=== PATIENT | male | born 1950 | race Caucasian/White ===

== ENCOUNTER 2018-08-04 09:15 | Observation (INO) ==
[2018-08-04] MEDS ORDERED: methylPREDNISolone 125 MG/2 ML VIAL IV STA (09:47)
[2018-08-04] MEDS ORDERED: ALBUT/IPRATROP 3MG/0.5MG NEB 3 ML VIAL INH STA (09:47)
[2018-08-04] MEDS ORDERED: SODIUM CHLORIDE 0.9% 1000ML 1,000 ML IV STA (09:48)
[2018-08-04 10:00] LABS: Basophils # (auto) 0.02 K/uL (0-0.2); Basophils % (auto) 0.2 %; Eosinophils # (auto) 0.23 K/uL (0-0.5); Eosinophils % (auto) 2.6 %; Hematocrit (blood only) 39.1 % (42-52); Hemoglobin 13.1 g/dL (14.0-18.0); Immature Granulocytes # (auto) 0.11 K/uL (0.00-0.02); Immature Granulocytes % (auto) 1.2 %; Lymphocytes # (auto) 0.73 K/uL (1.2-3.4); Lymphocytes % (auto) 8.1 %; Mean Corpuscular Hgb Conc 33.5 g/dL (32-36); Mean Corpuscular Volume 93.1 fL (80-100); Mean Platelet Volume 9.6 fL (7.4-10.4); Monocytes # (auto) 0.83 K/uL (0.11-0.59); Monocytes % (auto) 9.2 %; Neutrophils # (auto) 7.08 K/uL (1.4-6.5); Neutrophils % (auto) 78.7 %; Platelet Count 195 K/uL (130-400); RDW Coefficient of Variation 13.4 % (11.5-14.5)
--- NOTE | 2018-08-04 10:05 | XRay Report ---
XR chest 1V portable HISTORY: 67 years-old Male Dyspnea acute shortness of breath COMPARISON: None available TECHNIQUE: Portable AP view of the chest FINDINGS: Cardiomediastinal and hilar silhouettes are within normal limits. Calcification of the thoracic aorti c arch. There is no pneumothorax, large pleural effusion or overt pulmonary edema. Mild blunting of t he costophrenic angles with bibasilar interstitial opacities. Linear subsegmental consolidative opaci ties of the left lung base. Increased lucency of the lungs may reflect underlying emphysema. Degenera tive changes of the shoulders and spine. IMPRESSION: 1. Bibasilar opacities are suggestive of probable atelectasis. 2. Suggested emphysema. The above report was generated using voice recognition software. It may contain grammatical, syntax o r spelling errors. Electronically signed by: Ken Cuello M.D. 08/04/2018 10:04 AM
[2018-08-04 10:12] LABS: INR 1.2 (0.9-1.1); Partial Thromboplastin Ratio 0.9; Partial Thromboplastin Time 24.5 Seconds (21.0-31.0); Prothrombin Time 11.8 Seconds (9.0-12.0)
[2018-08-04 10:16] LABS: Alanine Aminotransferase 51 U/L (12-78); Aspartate Aminotransferase 13 U/L (15-37); BUN Creatinine Ratio 15.7 (10-20); Blood Urea Nitrogen 41 mg/dl (7-18); Calcium 9.5 mg/dl (8.5-10.1); Carbon Dioxide 25 mmol/L (21-32); Chloride 107 mmol/L (98-107); Creatinine Clr Calc Pharmacy 29.3 ml/min; Est GFR (African American) 27.6; Est GFR (Non-African American) 23.8; Glucose 103 mg/dl (70-99); Potassium 4.1 mmol/L (3.5-5.1); Sodium 139 mmol/L (136-145)
[2018-08-04 10:21] LABS: Albumin Globulin Ratio 0.7 (0.9-2); Alkaline Phosphatase 83 U/L (45-117); Bilirubin,Total 0.7 mg/dl (0.2-1); Globulin 4.3 gm/dl (2.5-4.0); Total Protein 7.3 gm/dl (6.4-8.2); Troponin I < 0.015 ng/ml (0-0.045)
[2018-08-04] MEDS ORDERED: DOXYCYCLINE HYCLATE 100 MG in DEXTROSE 5% 100 ML IV STA (11:47)
[2018-08-04] MEDS ORDERED: cefTRIAXone SODIUM 1,000 MG/50 ML BAG IV STA (11:47)
--- NOTE | 2018-08-04 13:28 | History & Physical Report ---
Date of Service August 04, 2018 Assessment & Plan (1) COPD exacerbation: Ongoing symptoms for past month - has failed outpatient management with oral prednisone, amoxicillin and nebulizer treatments. Today with hypoxia at the [facility] and unstable oxygen sats in the ED so referred for admission. - IV Solumedrol 40 mg Q8 hours (failed oral prednisone) - Broad antibiotic coverage due to bibasilar infiltrates on CXR - using Rocephin/doxycycline - DuoNebs QID ATC with additional up to Q2 hours prn - O2 via nasal canula titrated to maintain sat >90% - Continue home maintenance regimen of Symbicort and Spiriva - In view of persistent symptoms and recent weight loss, pt will need close outpatient f/u to ensure resolution and potential f/u imaging. Currently followed by [facility] but review of [facility] records reveals that patient is also attempting to obtain a [facility] PCP for management of more acute symptoms. (2) Hypoxia: See above (3) Anxiety: Continue home meds - bupropion and buspirone (4) Dyslipidemia: - Continue simvastatin 40 mg daily (5) MATTHEW on CPAP: - Order written for patient to use own CPAP machine at night (6) GERD without esophagitis: - Pt on PPI at home - will use Pepcid while admitted (7) CKD (chronic kidney disease) stage 3, GFR 30-59 ml/min: Creatinine today elevated at 2.64 - pt unsure of baseline but creatinine was ~2.3 when at [facility] earlier this month - IVF with NSS at 100 ml/hr - repeat labs in AM. Pt does report decreased oral intake with dark urine over past few days so may have a mild RAH related to dehydration - HOLD NSAIDs (uses ibuprofen and naproxen at home) (8) Essential hypertension: Was hypotensive in ED but BP improving with IVF - continue to monitor - Home meds restarted with holds for SBP <100 Patient seen and evaluated with collaborating physician, Dr. Jean. Plan of care discussed and as outlined above. Patient to be followed starting tomorrow by Dr. Morrissey. Kitty Monahan PA-C History of Present Illness Chief Complaint: shortness of breath Primary Care Provider: Kena Griffin PA-C This is 67 y/o male with a history COPD, CAD, HTN, CKD, PVD, GERD, Cervical DDD, MATTHEW on CPAP (HS), and dyslipidemia who presented to the ED today from the [facility] with shortness of breath, hypoxia and hypotension. Pt reports ongoing issues with breathing since the end of June for which he has been seen multiple times including in the ED at [facility] on 07/19 then at [facility] in [place] on 07/24. Pt reports in the ED he was started on five days of prednisone with mild improvement. When seen at , prednisone course extended and pt started on amoxicillin x 10 days. He was also given a nebulizer and has been using albuterol nebs 4x/day with some relief. Today he apparently presented to the [facility] for follow-up and was found to be hypoxic with pulseox in the mid 80s so he was referred to the ED. In the ED, he was given solumedrol and a DuoNeb but sats remained unstable so pt referred for admission. Currently pt reports some mild shortness of breath described as "I have to think about breathing all of the time" as well as trouble "getting enough air." He has had wheezing intermittently since symptoms began a month ago. Coughing typically comes in episodes that may last up to an hour - it is intermittently productive, initially of yellow-green sputum but since being on amoxicillin sputum is now white to clear. He denies hemoptysis. Breathing is worse with exertion - using a chair lift to go up and down the stairs at home. Unable to walk out to get the mail without significant dyspnea when he was able to do this before current episode of symptoms started. He does not have a thermometer so unsure if any fevers but has noted shaking chills and sweats at times. He reports an unintentional wt loss of 15 lbs over past month with associated nausea, loss of appetite. Allergies Allergy/AdvReac Type Severity Reaction Status Date / Time No Known Allergies Allergy Unverified 08/04/18 10:20 Home Medications Home Medications Medication Instructions Recorded Confirmed Type albuterol sulfate 2 inh INHALATION Q6H PRN 08/04/18 08/04/18 History amoxicillin 500 mg PO BID 08/04/18 08/04/18 History budesonide-formoterol 2 puff INHALATION BID 08/04/18 08/04/18 History bupropion HCl 300 mg PO QAM 08/04/18 08/04/18 History buspirone 10 mg PO HS 08/04/18 08/04/18 History cholecalciferol (vitamin D3) 1,000 unit PO DAILY 08/04/18 08/04/18 History [Vitamin D3] coal tar 1 applic TOPICAL DAILY 08/04/18 08/04/18 History ibuprofen 600 mg PO QID PRN 08/04/18 08/04/18 History lisinopril 10 mg PO HS 08/04/18 08/04/18 History lisinopril-hydrochlorothiazide 1 tab PO QAM 08/04/18 08/04/18 History mirtazapine 15 mg PO HS 08/04/18 08/04/18 History naproxen 250 mg PO BID PRN 08/04/18 08/04/18 History omeprazole 20 mg PO DAILY 08/04/18 08/04/18 History prazosin 2 mg PO HS 08/04/18 08/04/18 History simvastatin 40 mg PO HS 08/04/18 08/04/18 History tiotropium bromide 1 cap INHALATION DAILY 08/04/18 08/04/18 History Past Med/Surg History Social History Preferred Language: [place] Communication Ability: Effective Safety Administrator Required: No Beliefs That Will Affect Care: None Current Living Situation: Significant Other Current Living Situation Comment: "girlfriend" of 27 year - he helps her with care Other Information That Helps Us Care for You: No Feels Safe at Home: Yes Safety Concerns: Feels Safe At This Time Smoking Status: Former smoker Tobacco Type: cigarettes Do You Dip or Chew Tobacco: No Smoking End Date: 2004 Second Hand Exposure: No Tobacco Cessation Education Requested by Patient: No Hx Alcohol Use: Yes Alcohol type: beer Hx Substance Use: No Review of Systems Review of Systems: All systems reviewed & are unremarkable except as noted in HPI & below Constitutional: + chills, + sweats, + fatigue, + weakness, + anorexia and + weight loss (15 lbs unintentional over past month); no fever Eyes: no diplopia, no photophobia and not seeing flashes Ear, Nose, Mouth, Throat: no sore throat and no dysphagia Respiratory: + cough (intermittently productive), + change in sputum, + dyspnea, + dyspnea on exertion and + wheezing; no hemoptysis Cardiovascular: no chest pain, no orthopnea, no palpitations, no syncope and no edema Gastrointestinal: + bloating and + nausea; no vomiting, no change in stools, no constipation, no diarrhea/loose stools and no blood in stools Genitourinary: + problem reported (dark urine the past 2-3 days ); no dysuria, no urinary frequency and no hematuria Musculoskeletal: + neck pain (chronic); no back pain, no joint pain and no myalgia Integumentary: no rash and no skin ulcer Neurologic: + dizziness (with standing with associated blurry vision); no tingling, no numbness, no paresthesia and no syncope Psychiatric: no depression Physical Exam Constitutional: WD/WN, vitals as above no acute distress Eyes: PERRL, conjunctivae normal, anicteric sclerae EOM intact bilaterally ENMT: external ear and nose normal, oropharynx normal Neck: trachea midline Respiratory: no respiratory distress and does not use accessory muscles Auscultation: + diminished lung sounds (throughout) and + crackles (right > left base); no rhonchi and no wheezes Cardiovascular: Rate/Rhythm: regular rate and regular rhythm Heart Sounds: no gallop and no murmur Vessels: no carotid bruit Gastrointestinal (Abdomen): Inspection/Auscultation: + abdomen distended (softly) and normal bowel sounds Percussion/Palpation: abdomen nontender and no guarding Musculoskeletal: no cyanosis or clubbing, extremities motor strength 5/5 Head/Neck/Chest: normocephalic, head atraumatic and neck supple Extremities: no cyanosis Skin: no rashes, warm and dry Neurologic: moves all extremities; no focal motor deficits Speech / Cognition: normal speech Motor/Sensory: no tremor Psychiatric: A+Ox3, euthymic affect Results & Data Vital Signs (Past 12 Hours) Vital Signs Temp Pulse Resp BP Pulse Ox 08/04/18 12:30 88 13 111/70 94 08/04/18 12:00 85 13 108/64 95 08/04/18 11:36 90 15 93/57 L 92 08/04/18 11:30 89 17 93/57 L 94 08/04/18 11:00 92 H 12 98/68 L 92 08/04/18 10:30 90 13 111/71 93 08/04/18 10:01 98 H 11 L 93/57 L 92 04/23/19 10:00 97 H 22 93 08/04/18 09:58 99 H 93 08/04/18 09:40 94 H 20 08/04/18 09:30 101 H 13 108/64 08/04/18 09:27 36.7 C 104 H 20 83/59 L 96 Laboratory Results Laboratory Results - last 24 hr 08/04/18 08/04/18 08/04/18 09:37 09:37 09:37 WBC 9.00 RBC 4.20 L Hgb 13.1 L Hct 39.1 L MCV 93.1 MCH 31.2 MCHC 33.5 RDW Std Deviation 46.0 RDW Coeff of Demetrius 13.4 Plt Count 195 MPV 9.6 Immature Gran % (Auto) 1.2 Neut % (Auto) 78.7 Lymph % (Auto) 8.1 Tillman % (Auto) 9.2 Eos % (Auto) 2.6 Baso % (Auto) 0.2 Immature Gran # (Auto) 0.11 H Neut # (Auto) 7.08 H Lymph # (Auto) 0.73 L Tillman # (Auto) 0.83 H Eos # (Auto) 0.23 Baso # (Auto) 0.02 PT 11.8 INR 1.2 H APTT 24.5 PTT Ratio 0.9 Sodium 139 Potassium 4.1 Chloride 107 Carbon Dioxide 25 Anion Gap 7.0 BUN 41 H Creatinine 2.64 H Est Cr Clr Drug Dosing 29.3 Est GFR ( Amer) 27.6 Est GFR (Non-Af Amer) 23.8 BUN/Creatinine Ratio 15.7 Glucose 103 H Calcium 9.5 Total Bilirubin 0.7 AST 13 L ALT 51 Alkaline Phosphatase 83 Troponin I < 0.015 Total Protein 7.3 Albumin 3.0 L Globulin 4.3 H Albumin/Globulin Ratio 0.7 L Hepatitis C Ab Screen 08/04/18 09:37 WBC RBC Hgb Hct MCV MCH MCHC RDW Std Deviation RDW Coeff of Demetrius Plt Count MPV Immature Gran % (Auto) Neut % (Auto) Lymph % (Auto) Tillman % (Auto) Eos % (Auto) Baso % (Auto) Immature Gran # (Auto) Neut # (Auto) Lymph # (Auto) Tillman # (Auto) Eos # (Auto) Baso # (Auto) PT INR APTT PTT Ratio Sodium Potassium Chloride Carbon Dioxide Anion Gap BUN Creatinine Est Cr Clr Drug Dosing Est GFR ( Amer) Est GFR (Non-Af Amer) BUN/Creatinine Ratio Glucose Calcium Total Bilirubin AST ALT Alkaline Phosphatase Troponin I Total Protein Albumin Globulin Albumin/Globulin Ratio Hepatitis C Ab Screen Neg Diagnostic Findings Chest X-ray 08/04/18 - IMPRESSION: 1. Bibasilar opacities are suggestive of probable atelectasis. 2. Suggested emphysema. Medications Administered Sodium Chloride (Nss 1000ml) 1,000 mls @ 100 mls/hr IV .Q10H ARIANNA Stop: 09/03/18 13:38 Last Admin: 08/04/18 14:53 Dose: 100 mls/hr Documented by: [id number] Discontinued Medications Albuterol (Duoneb) 3 ml INH NOW STA Stop: 08/04/18 09:48 Last Admin: 08/04/18 10:03 Dose: 3 ml Documented by: [id number] Sodium Chloride (Nss 1000ml) 1,000 mls @ 125 mls/hr IV .Q8H STA Stop: 08/04/18 17:47 Last Infusion: 08/04/18 14:53 Dose: 0 mls/hr Documented by: [id number] Infusion: 08/04/18 12:32 Dose: 0 mls/hr Documented by: [id number] Admin: 08/04/18 10:03 Dose: 125 mls/hr Documented by: [id number] Doxycycline Hyclate 100 mg/ (Dextrose) 110 mls @ 50 mls/hr IV NOW STA Stop: 08/04/18 13:58 Last Infusion: 08/04/18 14:53 Dose: 0 mls/hr Documented by: [id number] Admin: 08/04/18 12:32 Dose: 50 mls/hr Documented by: [id number] Ceftriaxone Sodium (Rocephin) 1,000 mg in 50 mls @ 100 mls/hr IV NOW STA Stop: 08/04/18 12:16 Last Infusion: 08/04/18 12:27 Dose: 0 mls/hr Documented by: [id number] Admin: 08/04/18 11:57 Dose: 100 mls/hr Documented by: [id number] Methylprednisolone (Solumedrol) 125 mg IV NOW STA Stop: 08/04/18 09:48 Last Admin: 08/04/18 10:03 Dose: 125 mg Documented by: [id number] Supervising Physician Co-Signing Physician Notes Attending addendum: The patient was seen and examined in telemetry unit She has been feeling little better since admission He complains to have moderate shortness of breath but no chest pain and/or palpitation On examination Minimal distress at rest due to shortness of breath Hemodynamically stable Chest-decreased breath sounds all over secondary to poor air entry Heart-S1-S2, regular Abdomen-soft, benign nontender,, bowel sounds present Extremities-no edema [employer] INST[employer]= alert, awake and oriented x3. Generally weak Admission labs and imaging studies reviewed Has COPD exacerbation with severe emphysema complicated by obstructive sleep apnea Agree with assessment and plan as outlined above by Karol Jean
[2018-08-04] MEDS ORDERED: NITROGLYCERIN SL 0.4 MG/TAB TAB SL PRN (13:39)
[2018-08-04] MEDS: SODIUM CHLORIDE 0.9% 1000ML 1,000 ML IV SCH (14:53)
[2018-08-04] MEDS: ALBUT/IPRATROP 3MG/0.5MG NEB 3 ML VIAL NEB SCH ×2 (15:38→19:16)
[2018-08-04] MEDS: methylPREDNISolone 40 MG in SYRINGE 0 ML IV SCH (17:13)
--- NOTE | 2018-08-04 17:22 | Emergency Department Note ---
Entered by Arti Payne acting as a scribe for Pancho Ceelstin MD ED Provider Note CHIEF COMPLAINT: Shortness of Breath HISTORY OF PRESENT ILLNESS: The patient is a 67 year old male who presents to the Emergency Room with compla ints of shortness of breath for the last month. He states that his shortness of breath is exacerbated with exertion. The patient states that he was at the [place] [facility] this morning and was referred for being hypotensive. He reports having chills a couple of weeks ago and states that he had left lower quadrant abdominal pain this morning. The patient does report a history of abdominal problems. He also reports having neck pain but states that he has had this. The patient reports recent antibiotic use and also states that he was on Prednisone for 5 days. He states that he is still on the antibiotic. The patient states that he has not been eating much and reports recent weight loss. He states that he has had low Oxygen saturations in the past. He states that he recently had a pulmonary function test done in [place] and was told that he was 10% worse than he was in 2013. Pt denies LOC, headache, fevers, diaphoresis, visual changes, chest pain, nausea, vomiting, back pain, melena, hematochezia, urinary symptoms, numbness, weakness, lymphadenopathy, rash, or other complaints. Review of notes shows that the patient is on Amoxicillin. REVIEW OF SYSTEMS: See HPI for pertinent positives and negatives. A total of ten systems were reviewed and were otherwise negative. PMHx/PSHx: COPD, chronic kidney failure SOCIAL HISTORY: Patient lives at home. PHYSICAL EXAM: GENERAL: Awake, alert, well-appearing, in no distress HENT: Normocephalic, atraumatic. Oropharynx unremarkable. EYES: PERRL. Normal conjunctiva. Sclera non-icteric. NECK: Inspection normal. Non-tender. Supple. No nuchal rigidity. FROM. No masses. RESPIRATORY: Decreased air movement. Mildly dyspneic. CARDIAC: Normal rate. Normal rhythm. No murmurs. No rubs. Extremities warm and well perfused. Pulses equal. No JVD. GI: Soft, non-distended. No tenderness to palpation. No rebound or guarding. No masses. RECTAL: Deferred. MUSCULOSKELETAL: Atraumatic. Chest examination reveals no tenderness. The back is symmetrical on inspection without obvious abnormality. There is no CVA tenderness to palpation. No joint edema. LOWER EXTREMITIES: Calves are equal size bilaterally and non-tender. No edema. No discoloration. NEURO: Normal sensorium. No sensory or motor deficits noted. SKIN: No rash or jaundice noted. EMERGENCY DEPARTMENT COURSE: 09: Past medical records reviewed. The patient was evaluated in room B11B, and a complete history and physical examination were performed. 1152: I updated the patient who verbalized agreement and understanding of the treatment plan. His saturation was 90 after the nebulizer treatment but dipped into the high 80s so I placed him on supplemental Oxygen. 1158: I discussed the patient's case with Destiny Monahan PA-C admitting to Dr. Jean, who will evaluate the patient for further management. MEDICAL DECISION MAKING: Prior records/ancillary studies reviewed. Triage Nursing notes reviewed and agree them. The patient's history was concerning for shortness of breath. Differential diagnosis: Etiologies such as pneumonia, COPD, reactive airway disease, CHF, cardiac ischemia, pulmonary embolism, pneumothorax, musculoskeletal, infections, gastrointestinal, as well as others were entertained. Physical examination: As above. The patient had decreased air movement. He had borderline oxygen saturations on room air. He was hypoxic in the clinic. ER treatment provided: Supplemental oxygen DuoNeb Solu-Medrol IV doxycycline IV Rocephin Saline hydration On reassessment the patient felt better. Diagnostic interpretation by me: The electrocardiogram was negative for pathologic change. The labs revealed the patient had unremarkable CBC. No leukocytosis. The chemistry panel revealed chronic renal insufficiency. He states he has had decreased kidney function in the past. Troponin negative. Blood cultures done. Imaging studies: Chest x-ray performed and he was found to have some consolidative change at the bases which could be atelectasis versus infiltrate. Given his pulmonary symptoms and the fact that he has been on outpatient antibiotics I am concerned that this may be an incomplete treatment of pneumonia. He also has COPD findings. Patient will require further management in the hospital. Consultation: A consultation was placed with the hospitalist. The case was discussed and diagnostics were reviewed. The patient was evaluated in the ER for further treatment. IMPRESSION: COPD, PNA, hypoxia, hypotension PLAN: Admitted The scribe's documentation has been prepared under my direction and personally reviewed by me in its entirety. I confirm that the note above accurately reflects all work, treatment, procedures, and medical decision making performed by me. Impression & Plan COPD (chronic obstructive pulmonary disease), PNA (pneumonia), Hypoxia, Hypotension Past Med/Surg History Social History Preferred Language: Malian Communication Ability: Effective Front End Driver Required: No Beliefs That Will Affect Care: None Current Living Situation: Significant Other Current Living Situation Comment: "girlfriend" of 27 year - he helps her with care Other Information That Helps Us Care for You: No Feels Safe at Home: Yes Safety Concerns: Feels Safe At This Time Smoking Status: Former smoker Tobacco Type: cigarettes Do You Dip or Chew Tobacco: No Smoking End Date: 2004 Second Hand Exposure: No Tobacco Cessation Education Requested by Patient: No Hx Alcohol Use: Yes Alcohol type: beer Hx Substance Use: No Results & Data Vital Signs Vital Signs - 24 hr 08/04/18 09:27 08/04/18 09:30 08/04/18 09:40 Temperature 36.7 C Temperature Source Oral Sepsis Recent Fever Within 48 Hours No Sepsis Action Taken by Nursing No Action Required Pulse Rate 104 H 101 H 94 H Pulse Rate [Left Apical] Pulse Rate [Right Finger] Pulse Rate from SpO2 Sensor Pulse Rhythm Regular Pulse Rhythm [Left Apical] Pulse Strength Normal Pulse Strength [Left Apical] Respiratory Rate 20 13 20 Respiratory Effort / Characteristics Non-Labored Spontaneous Respiratory Depth Normal Respiratory Pattern Regular Blood Pressure 83/59 L 108/64 Blood Pressure [Left Arm] Blood Pressure Mean 67 78 Blood Pressure Mean [Left Arm] Blood Pressure Position [Left Arm] Pulse Oximetry 96 Pulse Oximetry [Right Index Finger] Oxygen Delivery Method Room Air Oxygen Delivery Method [Right Index Finger] Oxygen Flow Rate Oxygen Flow Rate [Right Index Finger] 08/04/18 09:58 08/04/18 10:00 08/04/18 10:01 Temperature Temperature Source Sepsis Recent Fever Within 48 Hours Sepsis Action Taken by Nursing Pulse Rate 99 H 97 H 98 H Pulse Rate [Left Apical] Pulse Rate [Right Finger] Pulse Rate from SpO2 Sensor 97 H 97 H Pulse Rhythm Regular Pulse Rhythm [Left Apical] Pulse Strength Pulse Strength [Left Apical] Respiratory Rate 22 11 L Respiratory Effort / Characteristics Respiratory Depth Respiratory Pattern Blood Pressure 93/57 L Blood Pressure [Left Arm] Blood Pressure Mean 69 Blood Pressure Mean [Left Arm] Blood Pressure Position [Left Arm] Pulse Oximetry 93 93 92 Pulse Oximetry [Right Index Finger] Oxygen Delivery Method Room Air Room Air Room Air Oxygen Delivery Method [Right Index Finger] Oxygen Flow Rate Oxygen Flow Rate [Right Index Finger] 08/04/18 10:30 08/04/18 11:00 08/04/18 11:30 Temperature Temperature Source Sepsis Recent Fever Within 48 Hours Sepsis Action Taken by Nursing Pulse Rate 90 92 H 89 Pulse Rate [Left Apical] Pulse Rate [Right Finger] Pulse Rate from SpO2 Sensor 91 H 90 90 Pulse Rhythm Pulse Rhythm [Left Apical] Pulse Strength Pulse Strength [Left Apical] Respiratory Rate 13 12 17 Respiratory Effort / Characteristics Respiratory Depth Respiratory Pattern Blood Pressure 111/71 98/68 L 93/57 L Blood Pressure [Left Arm] Blood Pressure Mean 84 78 69 Blood Pressure Mean [Left Arm] Blood Pressure Position [Left Arm] Pulse Oximetry 93 92 94 Pulse Oximetry [Right Index Finger] Oxygen Delivery Method Room Air Nasal Cannula Nasal Cannula Oxygen Delivery Method [Right Index Finger] Oxygen Flow Rate 2 2 Oxygen Flow Rate [Right Index Finger] 08/04/18 11:36 08/04/18 12:00 08/04/18 12:30 Temperature Temperature Source Sepsis Recent Fever Within 48 Hours Sepsis Action Taken by Nursing Pulse Rate 90 85 88 Pulse Rate [Left Apical] Pulse Rate [Right Finger] Pulse Rate from SpO2 Sensor 92 H 86 89 Pulse Rhythm Pulse Rhythm [Left Apical] Pulse Strength Pulse Strength [Left Apical] Respiratory Rate 15 13 13 Respiratory Effort / Characteristics Respiratory Depth Respiratory Pattern Blood Pressure 93/57 L 108/64 111/70 Blood Pressure [Left Arm] Blood Pressure Mean 69 78 83 Blood Pressure Mean [Left Arm] Blood Pressure Position [Left Arm] Pulse Oximetry 92 95 94 Pulse Oximetry [Right Index Finger] Oxygen Delivery Method Nasal Cannula Nasal Cannula Nasal Cannula Oxygen Delivery Method [Right Index Finger] Oxygen Flow Rate 2 2 2 Oxygen Flow Rate [Right Index Finger] 08/04/18 13:06 08/04/18 13:18 08/04/18 13:24 Temperature Temperature Source Sepsis Recent Fever Within 48 Hours Sepsis Action Taken by Nursing Pulse Rate 99 H Pulse Rate [Left Apical] Pulse Rate [Right Finger] Pulse Rate from SpO2 Sensor Pulse Rhythm Pulse Rhythm [Left Apical] Pulse Strength Pulse Strength [Left Apical] Respiratory Rate Respiratory Effort / Characteristics SOB on Exertion Respiratory Depth Normal Respiratory Pattern Regular Blood Pressure Blood Pressure [Left Arm] Blood Pressure Mean Blood Pressure Mean [Left Arm] Blood Pressure Position [Left Arm] Pulse Oximetry Pulse Oximetry [Right Index Finger] 94 Oxygen Delivery Method Nasal Cannula Oxygen Delivery Method [Right Index Finger] Nasal Cannula Oxygen Flow Rate 2 Oxygen Flow Rate [Right Index Finger] 2 08/04/18 13:42 08/04/18 14:20 08/04/18 15:44 Temperature 36.8 C 36.4 C L Temperature Source Oral Oral Sepsis Recent Fever Within 48 Hours Sepsis Action Taken by Nursing Pulse Rate 124 H Pulse Rate [Left Apical] 100 H Pulse Rate [Right Finger] 96 H 120 H Pulse Rate from SpO2 Sensor Pulse Rhythm Pulse Rhythm [Left Apical] Regular Pulse Strength Pulse Strength [Left Apical] Normal Respiratory Rate 20 24 Respiratory Effort / Characteristics Non-Labored Spontaneous SOB on Exertion Respiratory Depth Normal Respiratory Pattern Regular Blood Pressure Blood Pressure [Left Arm] 114/73 122/69 Blood Pressure Mean Blood Pressure Mean [Left Arm] 86 86 Blood Pressure Position [Left Arm] Sitting Sitting Pulse Oximetry 94 96 Pulse Oximetry [Right Index Finger] Oxygen Delivery Method Nasal Cannula Nasal Cannula Oxygen Delivery Method [Right Index Finger] Oxygen Flow Rate 2 2.0 Oxygen Flow Rate [Right Index Finger] 08/04/18 15:45 Temperature Temperature Source Sepsis Recent Fever Within 48 Hours Sepsis Action Taken by Nursing Pulse Rate Pulse Rate [Left Apical] 83 Pulse Rate [Right Finger] Pulse Rate from SpO2 Sensor Pulse Rhythm Pulse Rhythm [Left Apical] Pulse Strength Pulse Strength [Left Apical] Respiratory Rate 20 Respiratory Effort / Characteristics Non-Labored Spontaneous Respiratory Depth Respiratory Pattern Blood Pressure Blood Pressure [Left Arm] Blood Pressure Mean Blood Pressure Mean [Left Arm] Blood Pressure Position [Left Arm] Pulse Oximetry 95 Pulse Oximetry [Right Index Finger] Oxygen Delivery Method Nasal Cannula Oxygen Delivery Method [Right Index Finger] Oxygen Flow Rate 2 Oxygen Flow Rate [Right Index Finger] Home Medications Current Medication List: was personally reviewed by me Laboratory Data Attestation: I reviewed the patient's lab results. Result diagrams: 08/04/18 09:37 08/04/18 09:37 Lab Results 08/04/18 08/04/18 08/04/18 Range/Units 09:37 09:37 09:37 WBC 9.00 (4.8-10.8) K/uL RBC 4.20 L (4.7-6.1) M/uL Hgb 13.1 L (14.0-18.0) g/dL Hct 39.1 L (42-52) % MCV 93.1 (80-100) fL MCH 31.2 (25-34) pg MCHC 33.5 (32-36) g/dL RDW Std Deviation 46.0 (36.4-46.3) fL RDW Coeff of Demetrius 13.4 (11.5-14.5) % Plt Count 195 (130-400) K/uL MPV 9.6 (7.4-10.4) fL Immature Gran % (Auto) 1.2 % Neut % (Auto) 78.7 % Lymph % (Auto) 8.1 % [place] % (Auto) 9.2 % Eos % (Auto) 2.6 % Baso % (Auto) 0.2 % Immature Gran # (Auto) 0.11 H (0.00-0.02) K/uL Neut # (Auto) 7.08 H (1.4-6.5) K/uL Lymph # (Auto) 0.73 L (1.2-3.4) K/uL [place] # (Auto) 0.83 H (0.11-0.59) K/uL Eos # (Auto) 0.23 (0-0.5) K/uL Baso # (Auto) 0.02 (0-0.2) K/uL PT 11.8 (9.0-12.0) Seconds INR 1.2 H (0.9-1.1) APTT 24.5 (21.0-31.0) Seconds PTT Ratio 0.9 Sodium 139 (136-145) mmol/L Potassium 4.1 (3.5-5.1) mmol/L Chloride 107 (98-107) mmol/L Carbon Dioxide 25 (21-32) mmol/L Anion Gap 7.0 (3-11) BUN 41 H (7-18) mg/dl Creatinine 2.64 H (0.6-1.4) mg/dl Est Cr Clr Drug Dosing 29.3 ml/min Est GFR ( Amer) 27.6 Est GFR (Non-Af Amer) 23.8 BUN/Creatinine Ratio 15.7 (10-20) Glucose 103 H (70-99) mg/dl Calcium 9.5 (8.5-10.1) mg/dl Total Bilirubin 0.7 (0.2-1) mg/dl AST 13 L (15-37) U/L ALT 51 (12-78) U/L Alkaline Phosphatase 83 (45-117) U/L Troponin I < 0.015 (0-0.045) ng/ml Total Protein 7.3 (6.4-8.2) gm/dl Albumin 3.0 L (3.4-5.0) gm/dl Globulin 4.3 H (2.5-4.0) gm/dl Albumin/Globulin Ratio 0.7 L (0.9-2) Hepatitis C Ab Screen (Neg) 08/04/18 Range/Units 09:37 WBC (4.8-10.8) K/uL RBC (4.7-6.1) M/uL Hgb (14.0-18.0) g/dL Hct (42-52) % MCV (80-100) fL MCH (25-34) pg MCHC (32-36) g/dL RDW Std Deviation (36.4-46.3) fL RDW Coeff of Demetrius (11.5-14.5) % Plt Count (130-400) K/uL MPV (7.4-10.4) fL Immature Gran % (Auto) % Neut % (Auto) % Lymph % (Auto) % [place] % (Auto) % Eos % (Auto) % Baso % (Auto) % Immature Gran # (Auto) (0.00-0.02) K/uL Neut # (Auto) (1.4-6.5) K/uL Lymph # (Auto) (1.2-3.4) K/uL [place] # (Auto) (0.11-0.59) K/uL Eos # (Auto) (0-0.5) K/uL Baso # (Auto) (0-0.2) K/uL PT (9.0-12.0) Seconds INR (0.9-1.1) APTT (21.0-31.0) Seconds PTT Ratio Sodium (136-145) mmol/L Potassium (3.5-5.1) mmol/L Chloride (98-107) mmol/L Carbon Dioxide (21-32) mmol/L Anion Gap (3-11) BUN (7-18) mg/dl Creatinine (0.6-1.4) mg/dl Est Cr Clr Drug Dosing ml/min Est GFR ( Amer) Est GFR (Non-Af Amer) BUN/Creatinine Ratio (10-20) Glucose (70-99) mg/dl Calcium (8.5-10.1) mg/dl Total Bilirubin (0.2-1) mg/dl AST (15-37) U/L ALT (12-78) U/L Alkaline Phosphatase (45-117) U/L Troponin I (0-0.045) ng/ml Total Protein (6.4-8.2) gm/dl Albumin (3.4-5.0) gm/dl Globulin (2.5-4.0) gm/dl Albumin/Globulin Ratio (0.9-2) Hepatitis C Ab Screen Neg (Neg) Administered Medications Albuterol (Duoneb) 3 ml NEB QIDR ARIANNA Stop: 09/03/18 15:59 Last Admin: 08/04/18 15:38 Dose: 3 ml Documented by: [id number] Sodium Chloride (Nss 1000ml) 1,000 mls @ 100 mls/hr IV .Q10H ARIANNA Stop: 09/03/18 13:38 Last Admin: 08/04/18 14:53 Dose: 100 mls/hr Documented by: [id number] Methylprednisolone 40 mg/ (Syringe) 0.64 mls @ 1.5 mls/min IV Q8H ARIANNA Stop: 09/03/18 17:59 Last Admin: 08/04/18 17:13 Dose: 1.5 mls/min Documented by: [id number] Discontinued Medications Albuterol (Duoneb) 3 ml INH NOW STA Stop: 08/04/18 09:48 Last Admin: 08/04/18 10:03 Dose: 3 ml Documented by: [id number] Sodium Chloride (Nss 1000ml) 1,000 mls @ 125 mls/hr IV .Q8H STA Stop: 08/04/18 17:47 Last Infusion: 08/04/18 14:53 Dose: 0 mls/hr Documented by: [id number] Infusion: 08/04/18 12:32 Dose: 0 mls/hr Documented by: [id number] Admin: 08/04/18 10:03 Dose: 125 mls/hr Documented by: [id number] Doxycycline Hyclate 100 mg/ (Dextrose) 110 mls @ 50 mls/hr IV NOW STA Stop: 08/04/18 13:58 Last Infusion: 08/04/18 14:53 Dose: 0 mls/hr Documented by: [id number] Admin: 08/04/18 12:32 Dose: 50 mls/hr Documented by: [id number] Ceftriaxone Sodium (Rocephin) 1,000 mg in 50 mls @ 100 mls/hr IV NOW STA Stop: 08/04/18 12:16 Last Infusion: 08/04/18 12:27 Dose: 0 mls/hr Documented by: [id number] Admin: 08/04/18 11:57 Dose: 100 mls/hr Documented by: [id number] Methylprednisolone (Solumedrol) 125 mg IV NOW STA Stop: 08/04/18 09:48 Last Admin: 08/04/18 10:03 Dose: 125 mg Documented by: [id number] Imaging Data Radiologist's Impression: Radiology results as stated below per my review and the radiologist's interpretation: XR chest 1V portable HISTORY: 67 years-old Male Dyspnea acute shortness of breath COMPARISON: None available TECHNIQUE: Portable AP view of the chest FINDINGS: Cardiomediastinal and hilar silhouettes are within normal limits. Calcification of the thoracic aortic arch. There is no pneumothorax, large pleural effusion or overt pulmonary edema. Mild blunting of the costophrenic angles with bibasilar i nterstitial opacities. Linear subsegmental consolidative opacities of the left lung base. Increased lucency of the lungs may reflect underlying emphysema. Degenerative changes of the shoulders and spine. IMPRESSION: 1. Bibasilar opacities are suggestive of probable atelectasis. 2. Suggested emphysema. The above report was generated using voice recognition software. It may contain grammatical, syntax or spelling errors. Electronically signed by: Ken Cuello M.D. 08/04/2018 10:04 AM ECG Data Attestation: I personally reviewed and interpreted this ECG as follows: Indication: SOB/dyspnea Rate (beats per minute): 95 Rhythm: normal sinus Findings: no PAC, no PVC, no ST depression, no ST elevation, no acute ischemic change and no ectopy Blood Pressure Blood Pressure Findings: Normal blood pressure Discharge Plan Visit Data *Final* Discharge Date/Time: 08/04/18 12:57 Chief Complaint: Shortness of Breath/Dyspnea Stated Complaint: sob/dizzy ED Provider: Pancho Celestin Discharge Problem: COPD (chronic obstructive pulmonary disease), PNA (pneumonia), Hypoxia, Hypotension Patient Disposition: Admitted As Inpatient Discharge Instructions Interventions: ED Discharge Assessment Last Done: 08/04/18 12:57 Discharge Problem: COPD (chronic obstructive pulmonary disease) Qualifiers: COPD type: unspecified COPD Qualified Code(s): J44.9 - Chronic obstructive pulmonary disease, unspecified PNA (pneumonia) Qualifiers: Pneumonia type: due to unspecified organism Hypotension Qualifiers: Hypotension type: unspecified hypotension type Qualified Code(s): I95.9 - Hypotension, unspecified The scribe's documentation has been prepared under my direction and personally reviewed by me in its entirety. I confirm that the note above accurately reflects all work, treatment, procedures, and medical decision making performed by me.
[2018-08-04 19:42] LABS: Appearance Urine Clear (Clear); Bilirubin Urine Negative (Negative); Blood Urine Negative (Negative); Color Urine Yellow; Glucose Urine UA Negative (Negative); Ketones Urine Negative (Negative); Leukocyte Esterase Urine Negative (Negative); Nitrite Urine Negative (Negative); Protein Urine Negative (Negative); Urobilinogen Urine Negative (Negative)
[2018-08-04] MEDS: MIRTAZAPINE TAB 15 MG TAB PO SCH (20:18)
[2018-08-04] MEDS: PRAZOSIN HCL 1 MG CAP PO SCH (20:18)
[2018-08-04] MEDS: SIMVASTATIN 40 MG TAB PO SCH (20:19)
[2018-08-04] MEDS: BUDESONIDE/FORMOTEROL FUMARATE 160/4.5 60 PUFFS/INHALER INH SCH (20:19)
[2018-08-04] MEDS: LISINOPRIL 10 MG TAB PO SCH (20:20)
[2018-08-04] MEDS: DOXYCYCLINE HYCLATE 100 MG in DEXTROSE 5% 100 ML IV SCH (20:26)
[2018-08-04] MEDS ORDERED: ENOXAPARIN INJ 30 MG/0.3 ML SYR SQ SCH (21:00)
[2018-08-05] MEDS: SODIUM CHLORIDE 0.9% 1000ML 1,000 ML IV SCH ×2 (01:01→09:38)
[2018-08-05] MEDS: methylPREDNISolone 40 MG in SYRINGE 0 ML IV SCH ×3 (01:01→17:17)
[2018-08-05] MEDS: ALBUT/IPRATROP 3MG/0.5MG NEB 3 ML VIAL NEB SCH ×4 (07:35→18:58)
[2018-08-05] MEDS: DOXYCYCLINE HYCLATE 100 MG in DEXTROSE 5% 100 ML IV SCH ×2 (07:51→19:55)
[2018-08-05] MEDS: BUDESONIDE/FORMOTEROL FUMARATE 160/4.5 60 PUFFS/INHALER INH SCH ×2 (07:52→19:54)
[2018-08-05] MEDS: TIOTROPIUM BROMIDE 5 PUFF/90 MCG INH INH SCH (07:52)
[2018-08-05] MEDS: FAMOTIDINE 20 MG TAB PO SCH (07:53)
[2018-08-05] MEDS: BuPROPion XL 300 MG TABCR PO SCH (07:54)
[2018-08-05] MEDS: LISINOPRIL/HCTZ 10/12.5MG TAB PO SCH (07:54)
[2018-08-05] MEDS: CHOLECALCIFEROL 1,000 UNITS TAB PO SCH (07:54)
[2018-08-05 08:14] LABS: Hematocrit (blood only) 36.6 % (42-52); Hemoglobin 12.5 g/dL (14.0-18.0); Immature Granulocytes # (auto) 0.02 K/uL (0.00-0.02); Immature Granulocytes % (auto) 0.2 %; Lymphocytes % (auto) 5.3 %; Mean Corpuscular Hgb Conc 34.2 g/dL (32-36); Mean Corpuscular Volume 90.6 fL (80-100); Mean Platelet Volume 9.5 fL (7.4-10.4); Monocytes # (auto) 0.18 K/uL (0.11-0.59); Monocytes % (auto) 1.9 %; Neutrophils % (auto) 92.6 %; Platelet Count 199 K/uL (130-400); RDW Coefficient of Variation 12.9 % (11.5-14.5); RDW Standard Deviation 42.8 fL (36.4-46.3); Red Blood Count 4.04 M/uL (4.7-6.1)
[2018-08-05 08:45] LABS: BUN Creatinine Ratio 22.6 (10-20); Calcium 9.5 mg/dl (8.5-10.1); Creatinine Clr Calc Pharmacy 42.1 ml/min; Est GFR (African American) 43.8; Est GFR (Non-African American) 37.8; Potassium 4.1 mmol/L (3.5-5.1)
[2018-08-05] MEDS: cefTRIAXone SODIUM 1,000 MG in DEXTROSE 5% 50 ML IV SCH (10:57)
[2018-08-05] MEDS: ENOXAPARIN INJ 40 MG/0.4 ML SYR SQ SCH (19:53)
[2018-08-05] MEDS: SIMVASTATIN 40 MG TAB PO SCH (19:54)
[2018-08-05] MEDS: PRAZOSIN HCL 1 MG CAP PO SCH (19:54)
[2018-08-05] MEDS: MIRTAZAPINE TAB 15 MG TAB PO SCH (19:55)
[2018-08-05] MEDS: LISINOPRIL 10 MG TAB PO SCH (19:55)
--- NOTE | 2018-08-05 20:38 | Hospitalist Progress Note ---
Date of Service August 05, 2018 Assessment & Plan (1) COPD exacerbation: (2) Hypoxia: Present on admission with worsening SOB Failed outpatient management with oral prednisone, amoxicillin and nebulizer treatments. CXR showed bibasilar opacities are suggestive of probable atelectasis. Continue IV solumedrol 40mg q8h On Ceftriaxone and Doxy IV Continue home maintenance regimen of Symbicort and Spiriva Continue Neb treatment Will consider 2 step exercise on discharge (3) Anxiety: Continue bupropion and buspirone Stable (4) Dyslipidemia: Continue simvastatin 40 mg daily (5) MATTHEW on CPAP: Continue CPAP machine at night (6) GERD without esophagitis: Pt on PPI at home (7) CKD (chronic kidney disease) stage 3, GFR 30-59 ml/min: Creatinine on admission 2.64, baseline creatinine was ~2.3 when at [facility] earlier this month Received IVF Creatine 1.8 today Avoid any nephrotoxic agents Monitor BMP (8) Essential hypertension: BP stable Will resume home BP med CODE STATUS FULL CODE DVT PX on Lovenox Disposition Will discharge once medically stable Subjective Pt was seen and examined Lying in bed with no distress Pt said that he develops SOB with minimal exertion He said that his cough improves Denies any chest pain, palpitation and fever Physical Exam Physical Exam: General- No acute distress Head- atraumatic Eyes- PERRL, EOMI, ENT- oropharynx clear Neck- supple, no JVD Lungs-diminished BS Heart- regular rhythm; no murmur Abdomen- normal bowel sounds, soft, nontender Extremities- no calf tenderness Neuro- alert, oriented x 3; PERRL, EOMI; no facial palsy; no dysarthria Skin- warm & dry Results & Data Vital Signs (Past 12 Hours) Vital Signs Temp Pulse Pulse Pulse Resp BP Pulse Ox 08/05/18 19:24 36.8 C 91 H 17 124/69 93 08/05/18 18:58 103 H 16 93 08/05/18 16:20 36.6 C 98 H 17 125/70 98 08/05/18 15:05 96 H 08/05/18 14:53 96 H 16 98 08/05/18 11:14 36.8 C 107 H 24 143/74 H 92 08/05/18 11:09 99 H 16 95
[2018-08-06] MEDS: methylPREDNISolone 40 MG in SYRINGE 0 ML IV SCH ×3 (00:48→20:40)
[2018-08-06] MEDS: ALBUT/IPRATROP 3MG/0.5MG NEB 3 ML VIAL NEB SCH ×4 (06:57→18:55)
[2018-08-06] MEDS: TIOTROPIUM BROMIDE 5 PUFF/90 MCG INH INH SCH (07:54)
[2018-08-06] MEDS: CHOLECALCIFEROL 1,000 UNITS TAB PO SCH (07:54)
[2018-08-06] MEDS: BUDESONIDE/FORMOTEROL FUMARATE 160/4.5 60 PUFFS/INHALER INH SCH ×2 (07:54→20:42)
[2018-08-06] MEDS: DOXYCYCLINE HYCLATE 100 MG in DEXTROSE 5% 100 ML IV SCH ×2 (07:54→20:49)
[2018-08-06] MEDS: BuPROPion XL 300 MG TABCR PO SCH (07:55)
[2018-08-06] MEDS: LISINOPRIL/HCTZ 10/12.5MG TAB PO SCH (07:55)
[2018-08-06] MEDS: FAMOTIDINE 20 MG TAB PO SCH (07:55)
[2018-08-06] MEDS: cefTRIAXone SODIUM 1,000 MG in DEXTROSE 5% 50 ML IV SCH (12:22)
--- NOTE | 2018-08-06 14:45 | Hospitalist Progress Note ---
Date of Service August 06, 2018 Assessment & Plan (1) COPD exacerbation: (2) Hypoxia: Present on admission with worsening SOB Failed outpatient management with oral prednisone, amoxicillin and nebulizer treatments. CXR showed bibasilar opacities are suggestive of probable atelectasis. On IV solumedrol 40mg q8h, will taper to q12H On Ceftriaxone and Doxy IV Continue home maintenance regimen of Symbicort and Spiriva Continue Neb treatment Will consider 2 step exercise on discharge Clinically improves significantly (3) Anxiety: Continue bupropion and buspirone Stable (4) Dyslipidemia: Continue simvastatin 40 mg daily (5) MATTHEW on CPAP: Continue CPAP machine at night (6) GERD without esophagitis: Pt on PPI at home (7) CKD (chronic kidney disease) stage 3, GFR 30-59 ml/min: Creatinine on admission 2.64, baseline creatinine was ~2.3 when at [facility] earlier this month Received IVF Creatine 1.8 today Avoid any nephrotoxic agents Monitor BMP (8) Essential hypertension: BP stable Continue current therapy CODE STATUS FULL CODE DVT PX on Lovenox Disposition Will get a 2 step exercise today. Subjective Pt was seen and examined Sitting in chair with no distress Pt said that his breathing feels much better today He is saturating well on RA today Denies any chest pain, palpitation, dizziness and SOB Physical Exam Physical Exam: General- No acute distress Head- atraumatic Eyes- PERRL, EOMI, ENT- oropharynx clear Neck- supple, no JVD Lungs-diminished BS Heart- regular rhythm; no murmur Abdomen- normal bowel sounds, soft, nontender Extremities- no calf tenderness Neuro- alert, oriented x 3; PERRL, EOMI; no facial palsy; no dysarthria Skin- warm & dry Results & Data Vital Signs (Past 12 Hours) Vital Signs Temp Pulse Pulse Pulse Resp BP Pulse Ox 08/06/18 11:16 116 H 20 93 08/06/18 11:02 36.9 C 115 H 24 120/64 93 08/06/18 08:00 96 H 08/06/18 06:57 83 16 93 08/06/18 06:40 36.7 C 79 18 137/79 93 08/06/18 06:00 36.9 C 115 H 115 H 22 120/64 93 08/06/18 04:13 36.5 C 88 18 138/75 94
[2018-08-06] MEDS: PRAZOSIN HCL 1 MG CAP PO SCH (20:40)
[2018-08-06] MEDS: MIRTAZAPINE TAB 15 MG TAB PO SCH (20:40)
[2018-08-06] MEDS: ENOXAPARIN INJ 40 MG/0.4 ML SYR SQ SCH (20:41)
[2018-08-06] MEDS: LISINOPRIL 10 MG TAB PO SCH (20:42)
[2018-08-06] MEDS: SIMVASTATIN 40 MG TAB PO SCH (20:42)
[2018-08-07 06:44] LABS: Creatinine Clr Calc Pharmacy 48.6 ml/min; Est GFR (African American) 52.1
[2018-08-07] MEDS: ALBUT/IPRATROP 3MG/0.5MG NEB 3 ML VIAL NEB SCH ×2 (07:25→10:57)
[2018-08-07] MEDS: BuPROPion XL 300 MG TABCR PO SCH (08:34)
[2018-08-07] MEDS: LISINOPRIL/HCTZ 10/12.5MG TAB PO SCH (08:34)
[2018-08-07] MEDS: FAMOTIDINE 20 MG TAB PO SCH (08:34)
[2018-08-07] MEDS: CHOLECALCIFEROL 1,000 UNITS TAB PO SCH (08:34)
[2018-08-07] MEDS: methylPREDNISolone 40 MG in SYRINGE 0 ML IV SCH (08:35)
[2018-08-07] MEDS: TIOTROPIUM BROMIDE 5 PUFF/90 MCG INH INH SCH (08:35)
[2018-08-07] MEDS: BUDESONIDE/FORMOTEROL FUMARATE 160/4.5 60 PUFFS/INHALER INH SCH (08:35)
[2018-08-07] MEDS: DOXYCYCLINE HYCLATE 100 MG in DEXTROSE 5% 100 ML IV SCH (09:01)
--- NOTE | 2018-08-07 10:38 | Hospitalist Progress Note ---
Date of Service August 07, 2018 Assessment & Plan (1) COPD exacerbation: (2) Hypoxia: Present on admission with worsening SOB Failed outpatient management with oral prednisone, amoxicillin and nebulizer treatments. CXR showed bibasilar opacities are suggestive of probable atelectasis. On IV solumedrol 40mg q8h, will taper to q12H On Ceftriaxone day 3 IV doxycycline started on 08/04, then transition to oral today (08/07) Continue home maintenance regimen of Symbicort and Spiriva Continue Neb treatment Had 2 step exercise done yesterday and pt does not qualify for oxygen supplement Will discharge home on doxycycline and prednisone taper course Follow up with your primary care provider at the [facility] Clinically improves significantly (3) Anxiety: Continue bupropion and buspirone Stable (4) Dyslipidemia: Continue simvastatin 40 mg daily (5) MATTHEW on CPAP: Continue CPAP machine at night (6) GERD without esophagitis: Pt on PPI at home (7) CKD (chronic kidney disease) stage 3, GFR 30-59 ml/min: Creatinine on admission 2.64, baseline creatinine was ~2.3 when at [facility] earlier this month Received IVF Creatine 1.5 today Avoid any nephrotoxic agents Monitor BMP (8) Essential hypertension: BP stable Continue current therapy CODE STATUS FULL CODE DVT PX on Lovenox Disposition Will discharge home today Follow up with your primary care provider at the [facility] Subjective Pt was seen and examined Lying in bed with no distress Pt said that he feels much better He is saturating well on RA He walked a round with no distress He said that his breathing has not been that good for month He said that he has a good appetite Denies any fever, palpitation, dizziness and SOB Physical Exam Physical Exam: General- No acute distress Head- atraumatic Eyes- PERRL, EOMI, ENT- oropharynx clear Neck- supple, no JVD Lungs-diminished BS Heart- regular rhythm; no murmur Abdomen- normal bowel sounds, soft, nontender Extremities- no calf tenderness Neuro- alert, oriented x 3; PERRL, EOMI; no facial palsy; no dysarthria Skin- warm & dry Results & Data Vital Signs (Past 12 Hours) Vital Signs Temp Pulse Pulse Pulse Resp BP Pulse Ox 08/07/18 07:26 86 16 91 08/07/18 07:01 36.6 C 83 18 135/76 91 08/07/18 04:37 36.4 C L 93 H 20 141/73 H 91 08/06/18 23:35 98 H 08/06/18 23:23 36.5 C 86 20 162/67 H 93
[2018-08-07] MEDS: cefTRIAXone SODIUM 1,000 MG in DEXTROSE 5% 50 ML IV SCH (12:13)
[2018-08-07] MEDS ORDERED: DOXYCYCLINE HYCLATE 100 MG CAP PO SCH (21:00)
--- NOTE | 2018-08-14 08:58 | Discharge Summary ---
Date of Service August 07, 2018 Admission HPI Per Admitting Provider This is 67 y/o male with a history COPD, CAD, HTN, CKD, PVD, GERD, Cervical DDD, MATTHEW on CPAP (HS), and dyslipidemia who presented to the ED today from the [facility] with shortness of breath, hypoxia and hypotension. Pt reports ongoing issues with breathing since the end of June for which he has been seen multiple times including in the ED at [facility] on 07/19 then at [facility] in [place] on 07/24. Pt reports in the ED he was started on five days of prednisone with mild improvement. When seen at , prednisone course extended and pt started on amoxicillin x 10 days. He was also given a nebulizer and has been using albuterol nebs 4x/day with some relief. Today he apparently presented to the [facility] for follow-up and was found to be hypoxic with pulseox in the mid 80s so he was referred to the ED. In the ED, he was given solumedrol and a DuoNeb but sats remained unstable so pt referred for admission. Currently pt reports some mild shortness of breath described as "I have to think about breathing all of the time" as well as trouble "getting enough air." He has had wheezing intermittently since symptoms began a month ago. Coughing typically comes in episodes that may last up to an hour - it is intermittently productive, initially of yellow-green sputum but since being on amoxicillin sputum is now white to clear. He denies hemoptysis. Breathing is worse with exertion - using a chair lift to go up and down the stairs at home. Unable to walk out to get the mail without significant dyspnea when he was able to do this before current episode of symptoms started. He does not have a thermometer so unsure if any fevers but has noted shaking chills and sweats at times. He reports an unintentional wt loss of 15 lbs over past month with associated nausea, loss of appetite. Admission Exam Per Admitting Provider Review of Systems: All systems reviewed & are unremarkable except as noted in HPI & below Constitutional: + chills, + sweats, + fatigue, + weakness, + anorexia and + weight loss (15 lbs unintentional over past month); no fever Eyes: no diplopia, no photophobia and not seeing flas hes Ear, Nose, Mouth, Throat: no sore throat and no dysphagia Respiratory: + cough (intermittently productive), + change in sputum, + dyspnea, + dyspnea on exertion and + wheezing; no hemoptysis Cardiovascular: no chest pain, no orthopnea, no palpitations, no syncope and no edema Gastrointestinal: + bloating and + nausea; no vomiting, no change in stools, no constipation, no diarrhea/loose stools and no blood in stools Genitourinary: + problem reported (dark urine the past 2-3 days ); no dysuria, no urinary frequency and no hematuria Musculoskeletal: + neck pain (chronic); no back pain, no joint pain and no myalgia Integumentary: no rash and no skin ulcer Neurologic: + dizziness (with standing with associated blurry vision); no tingling, no numbness, no paresthesia and no syncope Psychiatric: no depression Principal Diagnosis COPD exacerbation Hypoxia CKD Anxiety Discharge Exam General- No acute distress Head- atraumatic Eyes- PERRL, EOMI, ENT- oropharynx clear Neck- supple, no JVD Lungs-diminished BS Heart- regular rhythm; no murmur Abdomen- normal bowel sounds, soft, nontender Extremities- no calf tenderness Neuro- alert, oriented x 3; PERRL, EOMI; no facial palsy; no dysarthria Skin- warm & dry Discharge Data Allergies Allergy/AdvReac Type Severity Reaction Status Date / Time No Known Allergies Allergy Unverified 08/04/18 10:20 Consultations 08/04/18 11:53 ED Decision to Admit Stat Ordered Studies XR chest 1V portable HISTORY: 67 years-old Male Dyspnea acute shortness of breath COMPARISON: None available TECHNIQUE: Portable AP view of the chest FINDINGS: Cardiomediastinal and hilar silhouettes are within normal limits. Calcification of the thoracic aortic arch. There is no pneumothorax, large pleural effusion or overt pulmonary edema. Mild blunting of the costophrenic angles with bibasilar interstitial opacities. Linear subsegmental consolidative opacities of the left lung base. Increased lucency of the lungs may reflect underlying emphysema. Degenerative changes of the shoulders and spine. IMPRESSION: 1. Bibasilar opacities are suggestive of probable atelectasis. 2. Suggested emphysema. The above report was generated using voice recognition software. It may contain grammatical, syntax or spelling errors. Electronically signed by: Ken Cuello M.D. 08/04/2018 10:04 AM Dictated: 08/04/18 1002 Transcribed: 08/04/18 1002 Hospital Course (1) COPD exacerbation: Present on admission with worsening SOB Failed outpatient management with oral prednisone, amoxicillin and nebulizer tr eatments. CXR showed bibasilar opacities are suggestive of probable atelectasis. Continue IV solumedrol 40mg q8h On Ceftriaxone and Doxy - IV Solumedrol 40 mg Q8 hours (failed oral prednisone) - Broad antibiotic coverage due to bibasilar infiltrates on CXR - using Rocephin/doxycycline - DuoNebs QID ATC with additional up to Q2 hours prn - O2 via nasal canula titrated to maintain sat >90% - Continue home maintenance regimen of Symbicort and Spiriva - In view of persistent symptoms and recent weight loss, pt will need close outpatient f/u to ensure resolution and potential f/u imaging. Currently followed by [facility] but review of [facility] records reveals that patient is also attempting to obtain a [facility] PCP for management of more acute symptoms. (2) Hypoxia: Present on admission with worsening SOB Failed outpatient management with oral prednisone, amoxicillin and nebulizer treatments. CXR showed bibasilar opacities are suggestive of probable atelectasis. On IV solumedrol 40mg q8h, will taper to q12H On Ceftriaxone day 3 IV doxycycline started on 08/04, then transition to oral today (08/07) Continue home maintenance regimen of Symbicort and Spiriva Continue Neb treatment Had 2 step exercise done yesterday and pt does not qualify for oxygen supplement Will discharge home on doxycycline and prednisone taper course Follow up with your primary care provider at the [facility] Clinically improves significantly (3) Anxiety: Continue bupropion and buspirone Stable (4) Dyslipidemia: Continue simvastatin 40 mg daily (5) MATTHEW on CPAP: Continue CPAP machine at night (6) GERD without esophagitis: Pt on PPI at home (7) CKD (chronic kidney disease) stage 3, GFR 30-59 ml/min: Creatinine on admission 2.64, baseline creatinine was ~2.3 when at [facility] earlier this month Received IVF Creatine 1.5 today Avoid any nephrotoxic agents Monitor BMP (8) Essential hypertension: BP stable Continue current therapy CODE STATUS FULL CODE DVT PX on Lovenox Disposition Will discharge home today Follow up with your primary care provider at the [facility] Total Time Total Time Spent Total Time Spent (In Minutes): 35 minutes Total Time Includes: Examination of the Patient, Discharge Planning, Medication Reconciliation, Communication With Other Providers and Other Discharge Plan Discharge Items Patient Disposition: Home - Self-Care Reason For Visit: COPD EXACERBATION Discharge Diagnosis: COPD exacerbation Hypoxia CKD Anxiety Discharge Goals: Decrease discomfort, Improve disease control, Improve function and Increase independence Activity: Resume your previous activity Activity Comment: as tolerated Non-emergency contact: Primary Care Provider Call non-emergency contact if: you have any medication questions and your symptoms worsen Follow-up/Referrals: Kena Griffin PA-C [Primary Care Provider] - Diet: Heart Healthy Addtl Provider Instructions: Please call to schedule follow up appointment with your primary care provider at the [facility] Complete the course of the antibiotic Continue prednisone taper course Prescriptions: New ipratropium-albuterol 0.5 mg-3 mg(2.5 mg base)/3 mL Solution For Nebulization 3 ml NEB QIDR 30 Days Qty: 90 RF: 0 prednisone 10 mg tablet 10 mg PO UD Qty: 26 RF: 0 Continued naproxen 250 mg Tablet 250 mg PO BID PRN (Reason: Pain) RF: 0 simvastatin 40 mg Tablet 40 mg PO HS RF: 0 buspirone 10 mg Tablet 10 mg PO HS RF: 0 lisinopril 10 mg Tablet 10 mg PO HS RF: 0 omeprazole 20 mg Capsule,Delayed Release(Dr/Ec) 20 mg PO DAILY RF: 0 mirtazapine 15 mg Tablet 15 mg PO HS RF: 0 lisinopril-hydrochlorothiazide 10-12.5 mg Tablet 1 tab PO QAM RF: 0 coal tar 0.5 % Shampoo 1 applic TOPICAL DAILY RF: 0 prazosin 2 mg Capsule 2 mg PO HS RF: 0 cholecalciferol (vitamin D3) [Vitamin D3] 1,000 unit Capsule 1,000 unit PO DAILY RF: 0 bupropion HCl 300 mg Tablet Extended Release 24 Hr 300 mg PO QAM RF: 0 tiotropium bromide 18 mcg Capsule, W/Inhalation Device 1 cap INHALATION DAILY RF: 0 budesonide-formoterol 160-4.5 mcg/actuation Hfa Aerosol Inhaler 2 puff INHALATION BID RF: 0 albuterol sulfate 90 mcg/actuation Aerosol Powdr Breath Activated 2 inh INHALATION Q6H PRN (Reason: Shortness Of Breath) RF: 0 Discontinued amoxicillin 500 mg Tablet 500 mg PO BID RF: 0 ibuprofen 600 mg Tablet 600 mg PO QID PRN (Reason: Pain) RF: 0 Stand-Alone Forms: My [facility]/Other Patient Handouts: Doxycycline Monohydrate Oral tablet, Prednisone Oral tablet, COPD, Breathing Controlled Dc, Breathing Pursed Lip Dc, COPD Inhalers, Nebulizer Use Discharge Orders: Discharge Order (Routine); Ordered 08/07/18 Ordered By: Garry Morrissey Admission Data Admit Date/Time: 08/04/18 12:36 Attending Provider: Garry Morrissey Admit Provider: Abhi Jean Primary Care Provider: Kena Griffin Other Providers: Abhi Jean Service: Telemetry Other Interventions: Discharge Summary Assessment (RN) Last Done: 08/07/18 12:58 DC Date/Time DO NOT enter until pt leaves facility: 08/07/18 14:23
== END 2018-08-07 14:23 | disposition home or self-care (01) ==
LOC: ED 09:15 → 2S 09:15